=== PATIENT | female | born 1990 | race Caucasian/White ===

== ENCOUNTER → 2019-08-10 | Outpatient (CLI) | payer OTHER ==
[~2019-08-10] MED LIST: ACYC400 PO; ALBU90OI; ALBU90OI INH; AMOX500 PO; BUPR100; CEPH500 PO; CLON.5 PO; HYDACE5 PO; IBUP600 PO; IBUP800 PO; MECL25 PO; MEDR150I IM; METO10 PO; MULVITMINE PO; NAPR500 PO; OXYACE5T PO; PARO20 PO; PREVPAC PO; RANI150 PO; RXSULTRIDS PO; SULTRIDS PO; Sprintec1 EACH; TRAM50 PO; Ultram50 MG PO
[2019-08-12 15:07] LABS: HPV 16 Negative (Negative); HPV 18 Negative (Negative); HPV OTHER HR TYPES Negative (Negative)
== END ==
LOC: LAB SHORT 17:55 → LAB 17:55
PROVIDERS: Registered Nurse Community Health
DX: Z01.419 Encounter for gynecological examination (general) (routine) without abnormal findings (principal); Z12.4 Encounter for screening for malignant neoplasm of cervix
CPT/HCPCS: 87624; G0123

== ENCOUNTER → 2019-11-17 | Outpatient (CLI) | payer OTHER ==
[2019-11-19 03:07] LABS: CHLAMYDIA TRACHOMATIS, NAA Negative (Negative); NEISSERIA GONORRHOEAE, NAA Negative (Negative)
== END ==
LOC: LAB 12:53 → LAB SHORT 12:53
PROVIDERS: Registered Nurse Community Health
DX: N89.8 Other specified noninflammatory disorders of vagina (principal); Z20.2 Contact with and (suspected) exposure to infections with a predominantly sexual mode of transmission
CPT/HCPCS: 87070; 87205; 87491; 87591

== ENCOUNTER → 2020-06-06 | Outpatient (CLI) | payer OTHER ==
[2020-06-08 14:11] LABS: CHLAMYDIA BY NAA Negative (Negative); GONOCOCCUS BY NAA Negative (Negative); TRICH VAG BY NAA Negative (Negative)
== END ==
LOC: LAB SHORT 15:44 → LAB SRC 15:44 → LAB UCHC 15:44
PROVIDERS: Registered Nurse Community Health
DX: L29.3 Anogenital pruritus, unspecified (principal); Z20.2 Contact with and (suspected) exposure to infections with a predominantly sexual mode of transmission
CPT/HCPCS: 87070; 87205; 87491; 87591; 87661

== ENCOUNTER 2021-05-22 08:47 | Day surgery (SDC) | payer OTHER ==
[~2021-05-22] VITALS: Ht 162.6 cm; Wt 66.6 kg
[2021-05-22] MEDS ORDERED: AMOXICILLI125 MG/5 M PO (09:14)
== END 2021-05-22 10:37 | disposition home or self-care (01) ==
LOC: ORSCSDS 08:47
PROVIDERS: Student in an Organized Health Care Education/Training Program
PROC: 0DB68ZX Excision of Stomach, Via Natural or Artificial Opening Endoscopic, Diagnostic (ICD-10-PCS; principal; 2021-05-22 10:00)
PROC: 0DB58ZX Excision of Esophagus, Via Natural or Artificial Opening Endoscopic, Diagnostic (ICD-10-PCS; principal; 2021-05-22 10:00)
PROC: 0DB98ZX Excision of Duodenum, Via Natural or Artificial Opening Endoscopic, Diagnostic (ICD-10-PCS; principal; 2021-05-22 10:00)
DX: K21.9 Gastro-esophageal reflux disease without esophagitis (principal); K29.50 Unspecified chronic gastritis without bleeding; R13.10 Dysphagia, unspecified; R10.9 Unspecified abdominal pain; R19.4 Change in bowel habit; K62.5 Hemorrhage of anus and rectum; F31.9 Bipolar disorder, unspecified; Z87.891 Personal history of nicotine dependence; Z79.899 Other long term (current) drug therapy
CPT/HCPCS: 88305; 88342; J2250; J2704; J7120

== ENCOUNTER 2021-08-22 17:44 | Emergency (ER) | payer OTHER ==
[~2021-08-22] VITALS: Ht 162.6 cm; Wt 63.5 kg
[~2021-08-22 17:44] MED LIST changes: -FERSU300 PO; -PROM12.5S PR; -SUCR1 PO
[2021-08-22 18:46] LABS: BASOPHILS ABSOLUTE AUTO 0.01 K/mm3 (0.00-0.23); BASOPHILS PERCENT AUTO 0 % (0-2); EOSINOPHILS PERCENT AUTO 0 % (0-6); Hematocrit 26.1 % (33.0-51.0); IMMATURE GRAN ABSOLUTE AUTO 0.03 K/mm3 (0.00-0.10); IMMATURE GRAN PERCENT AUTO 0 % (0-1); LYMPHOCYTES ABSOLUTE AUTO 0.57 K/mm3 (0.84-5.20); LYMPHOCYTES PERCENT AUTO 6 % (21-46); MONOCYTES ABSOLUTE AUTO 0.17 K/mm3 (0.16-1.47); MONOCYTES PERCENT AUTO 2 % (4-13); Mean Corpuscular HGB 17.2 pg (26.0-34.0); Mean Corpuscular HGB Conc 26.8 g/dL (31.5-36.5); Mean Corpuscular Volume 64 fL (80-100); NEUTROPHILS ABSOLUTE AUTO 8.26 K/mm3 (1.96-9.15); NEUTROPHILS PERCENT AUTO 91 % (41-73); Platelet Count 425 K/mm3 (150-400); RDW Coefficient Variation 17.7 % (11.7-14.2); RDW Standard Deviation 40.1 fL (35.1-46.3); Red Blood Cell Count 4.08 M/mm3 (3.80-5.20); White Blood Cell Count 9.04 K/mm3 (4.00-11.30)
[2021-08-22 19:04] LABS: Alanine Aminotransfer (ALT/SGP 20 U/L (12-78); Albumin, Blood 4.6 g/dL (3.4-5.0); Albumin/Globulin Ratio 1.4 (0.8-1.8); Alk Phos 53 U/L (50-136); Anion Gap 4 mmol/L (6-16); Aspartate Aminotrans (AST/SGOT 16 U/L (12-37); Bilirubin, Total 0.4 mg/dL (0.1-1.0); Blood Urea Nitrogen 13 mg/dL (8-24); Bun/Creatinine Ratio 18.6 (12.0-20.0); CO2, Blood 27 mmol/L (21-32); Calcium, Blood 9.6 mg/dL (8.5-10.1); Chloride, Blood 111 mmol/L (98-108); Globulin, Blood 3.4 g/dL (2.2-4.0); Glomerular Filtration Rate >60 (60-); Glucose, Blood 109 mg/dL (70-99); Potassium, Blood 3.9 mmol/L (3.5-5.5); Sodium, Blood 142 mmol/L (136-145)
[2021-08-22 19:05] LABS: International Normalized Ratio 1.04; Prothrombin Time Results 10.9 Sec (9.7-11.5)
[2021-08-22 20:59] LABS: Percent Saturation 2.1 % (15.0-50.0)
[2021-08-22] MEDS ORDERED: FERSU300 PO (21:06)
[2021-08-22] MEDS ORDERED: SUCR1 PO (21:18)
[2021-08-22] MEDS ORDERED: PROM12.5S PR (21:18)
== END 2021-08-22 21:29 | disposition home or self-care (01) ==
LOC: ER 17:44
PROVIDERS: Physician Assistant; Student in an Organized Health Care Education/Training Program
DX: K92.1 Melena (principal); D50.9 Iron deficiency anemia, unspecified; R10.13 Epigastric pain; R53.83 Other fatigue; R11.2 Nausea with vomiting, unspecified; J45.909 Unspecified asthma, uncomplicated; Z88.6 Allergy status to analgesic agent; Z79.899 Other long term (current) drug therapy
CPT/HCPCS: 36430; 80053; 83540; 83550; 84703; 85025; 85610; 85730; 86850; 86900; 86901; 86923; 96374; 99283-25; A9270; C9113; J7030; P9016

== ENCOUNTER → 2021-08-22 | Outpatient (CLI) | payer OTHER ==
[~2021-08-22] MED LIST changes: +AMOXICILLI125 MG/5 M PO; +FERSU300 PO; +PROM12.5S PR; +SUCR1 PO
[2021-08-22 11:46] LABS: BASOPHILS ABSOLUTE AUTO 0.03 K/mm3 (0.00-0.23); BASOPHILS PERCENT AUTO 0 % (0-2); EOSINOPHILS PERCENT AUTO 0 % (0-6); Hematocrit 25.6 % (33.0-51.0); Hemoglobin 6.9 g/dL (11.5-16.0); IMMATURE GRAN ABSOLUTE AUTO 0.04 K/mm3 (0.00-0.10); IMMATURE GRAN PERCENT AUTO 0 % (0-1); LYMPHOCYTES ABSOLUTE AUTO 0.39 K/mm3 (0.84-5.20); LYMPHOCYTES PERCENT AUTO 4 % (21-46); MONOCYTES ABSOLUTE AUTO 0.34 K/mm3 (0.16-1.47); MONOCYTES PERCENT AUTO 3 % (4-13); Mean Corpuscular Volume 63 fL (80-100); Mean Platelet Volume 9.7 fL (9.1-12.4); NEUTROPHILS ABSOLUTE AUTO 9.45 K/mm3 (1.96-9.15); NEUTROPHILS PERCENT AUTO 92 % (41-73); Platelet Count 411 K/mm3 (150-400); Red Blood Cell Count 4.05 M/mm3 (3.80-5.20); White Blood Cell Count 10.25 K/mm3 (4.00-11.30)
== END | disposition home or self-care (01) ==
LOC: LAB 11:43 → LAB SHORT 11:43
PROVIDERS: Physician Assistant
DX: R11.2 Nausea with vomiting, unspecified (principal)
CPT/HCPCS: 85025

== ENCOUNTER 2021-10-22 11:35 | Day surgery (SDC) | payer OTHER ==
[~2021-10-22] VITALS: Ht 162.6 cm; Wt 61.3 kg
[~2021-10-22 11:35] MED LIST changes: +FERSU300 PO; +PROM12.5S PR; +SUCR1 PO
[2021-10-22] MEDS ORDERED: PROP10 (11:47)
[2021-10-22] MEDS ORDERED: SERT100 (11:48)
== END 2021-10-22 13:20 | disposition home or self-care (01) ==
LOC: ORSCSDS 11:35
PROVIDERS: Student in an Organized Health Care Education/Training Program
PROC: 0DBB8ZX Excision of Ileum, Via Natural or Artificial Opening Endoscopic, Diagnostic (ICD-10-PCS; principal; 2021-10-22 12:45)
DX: R11.2 Nausea with vomiting, unspecified (principal); K62.5 Hemorrhage of anus and rectum; R10.9 Unspecified abdominal pain; R19.7 Diarrhea, unspecified; K52.9 Noninfective gastroenteritis and colitis, unspecified; K64.4 Residual hemorrhoidal skin tags; F31.9 Bipolar disorder, unspecified; K21.9 Gastro-esophageal reflux disease without esophagitis; Z87.891 Personal history of nicotine dependence; Z79.899 Other long term (current) drug therapy
CPT/HCPCS: 88305; J2250; J2405; J2704; J7120

== ENCOUNTER → 2021-10-27 | Outpatient (CLI) | payer OTHER ==
[~2021-10-27] MED LIST changes: +PROP10; +SERT100
[2021-10-27 13:03] LABS: BASOPHILS ABSOLUTE AUTO 0.03 K/mm3 (0.00-0.23); BASOPHILS PERCENT AUTO 1 % (0-2); EOSINOPHILS ABSOLUTE AUTO 0.14 K/mm3 (0.00-0.68); EOSINOPHILS PERCENT AUTO 3 % (0-6); Hematocrit 34.3 % (33.0-51.0); Hemoglobin 10.4 g/dL (11.5-16.0); IMMATURE GRAN ABSOLUTE AUTO 0.02 K/mm3 (0.00-0.10); IMMATURE GRAN PERCENT AUTO 0 % (0-1); LYMPHOCYTES ABSOLUTE AUTO 1.79 K/mm3 (0.84-5.20); LYMPHOCYTES PERCENT AUTO 36 % (21-46); MONOCYTES ABSOLUTE AUTO 0.32 K/mm3 (0.16-1.47); MONOCYTES PERCENT AUTO 7 % (4-13); Mean Corpuscular HGB 22.6 pg (26.0-34.0); Mean Corpuscular HGB Conc 30.3 g/dL (31.5-36.5); Mean Corpuscular Volume 74 fL (80-100); Mean Platelet Volume 9.4 fL (9.1-12.4); NEUTROPHILS ABSOLUTE AUTO 2.64 K/mm3 (1.96-9.15); NEUTROPHILS PERCENT AUTO 54 % (41-73); Platelet Count 270 K/mm3 (150-400); RDW Coefficient Variation 22.4 % (11.7-14.2); RDW Standard Deviation 58.5 fL (35.1-46.3); Red Blood Cell Count 4.61 M/mm3 (3.80-5.20); White Blood Cell Count 4.94 K/mm3 (4.00-11.30)
[2021-10-27 13:22] LABS: Alanine Aminotransfer (ALT/SGP 23 U/L (12-78); Albumin, Blood 4.4 g/dL (3.4-5.0); Albumin/Globulin Ratio 1.7 (0.8-1.8); Alk Phos 56 U/L (40-126); Anion Gap 11 mmol/L (6-16); Aspartate Aminotrans (AST/SGOT 17 U/L (12-37); Bilirubin, Total 0.4 mg/dL (0.1-1.0); Blood Urea Nitrogen 9 mg/dL (8-24); Bun/Creatinine Ratio 13.6 (12.0-20.0); CO2, Blood 26 mmol/L (21-32); Calcium, Blood 9.3 mg/dL (8.5-10.1); Chloride, Blood 107 mmol/L (98-108); Creatinine, Blood 0.66 mg/dL (0.40-1.00); Globulin, Blood 2.6 g/dL (2.2-4.0); Glomerular Filtration Rate >60 (60-); Glucose, Blood 90 mg/dL (70-99); Potassium, Blood 4.2 mmol/L (3.5-5.5); Sodium, Blood 144 mmol/L (136-145)
== END | disposition home or self-care (01) ==
LOC: LAB SHORT 12:59
PROVIDERS: Physician Assistant
DX: R10.9 Unspecified abdominal pain (principal)
CPT/HCPCS: 80053; 83690; 85025

== ENCOUNTER → 2022-01-16 | Outpatient (CLI) | payer OTHER ==
[2022-01-16 19:00] LABS: Hematocrit 36.2 % (33.0-51.0); Hemoglobin 11.2 g/dL (11.5-16.0)
[2022-01-16 22:47] LABS: Free Thyroxine 0.97 ng/dL (0.70-1.60); Thyroid Stimulating Hormone 1.4 uIU/mL (0.360-4.800)
[2022-01-17 08:11] LABS: HIV AB/P24 AG SCREEN Non Reactive (Non Reactive)
[2022-01-18 00:07] LABS: HBSAG SCREEN Negative (Negative); HCV AB <0.1 (0.0-0.9); HEP B CORE AB, TOT Negative (Negative)
[2022-01-18 15:12] LABS: HPV 16 Negative (Negative); HPV 18 Negative (Negative); HPV OTHER HR TYPES Negative (Negative)
[2022-01-19 12:10] LABS: CHLAMYDIA BY NAA Negative (Negative); GONOCOCCUS BY NAA Negative (Negative); TRICH VAG BY NAA Negative (Negative)
== END ==
LOC: LAB SHORT 13:40
PROVIDERS: Registered Nurse Community Health
DX: Z11.3 Encounter for screening for infections with a predominantly sexual mode of transmission (principal); Z12.4 Encounter for screening for malignant neoplasm of cervix; D50.9 Iron deficiency anemia, unspecified; N94.89 Other specified conditions associated with female genital organs and menstrual cycle; R63.4 Abnormal weight loss; Z20.2 Contact with and (suspected) exposure to infections with a predominantly sexual mode of transmission; Z72.51 High risk heterosexual behavior
CPT/HCPCS: 83036; 84439; 84443; 85014; 85018; 86592; 86704; 86708; 86803; 87340; 87389; 87491; 87591; 87661

== ENCOUNTER → 2022-02-27 | Outpatient (CLI) | payer OTHER ==
[2022-02-27 13:08] LABS: BASOPHILS ABSOLUTE AUTO 0.02 K/mm3 (0.00-0.23); BASOPHILS PERCENT AUTO 0 % (0-2); EOSINOPHILS ABSOLUTE AUTO 0.04 K/mm3 (0.00-0.68); EOSINOPHILS PERCENT AUTO 1 % (0-6); Hematocrit 30.6 % (33.0-51.0); Hemoglobin 9.9 g/dL (11.5-16.0); IMMATURE GRAN ABSOLUTE AUTO 0.02 K/mm3 (0.00-0.10); IMMATURE GRAN PERCENT AUTO 0 % (0-1); LYMPHOCYTES ABSOLUTE AUTO 0.84 K/mm3 (0.84-5.20); LYMPHOCYTES PERCENT AUTO 11 % (21-46); MONOCYTES ABSOLUTE AUTO 0.22 K/mm3 (0.16-1.47); MONOCYTES PERCENT AUTO 3 % (4-13); Mean Corpuscular HGB 26.5 pg (26.0-34.0); Mean Corpuscular HGB Conc 32.4 g/dL (31.5-36.5); Mean Corpuscular Volume 82 fL (80-100); Mean Platelet Volume 10.8 fL (9.1-12.4); NEUTROPHILS ABSOLUTE AUTO 6.26 K/mm3 (1.96-9.15); NEUTROPHILS PERCENT AUTO 85 % (41-73); Platelet Count 221 K/mm3 (150-400); RDW Coefficient Variation 15.4 % (11.7-14.2); RDW Standard Deviation 46.3 fL (35.1-46.3); Red Blood Cell Count 3.74 M/mm3 (3.80-5.20)
[2022-02-27 13:23] LABS: Albumin, Blood 3.7 g/dL (3.4-5.0); Albumin/Globulin Ratio 1.5 (0.8-1.8); Bilirubin, Total 0.4 mg/dL (0.1-1.0); Bun/Creatinine Ratio 13.5 (12.0-20.0); Calcium, Blood 8.5 mg/dL (8.5-10.1); Creatinine, Blood 0.59 mg/dL (0.40-1.00); Globulin, Blood 2.4 g/dL (2.2-4.0); Potassium, Blood 3.6 mmol/L (3.5-5.5); Total Protein, Blood 6.1 g/dL (6.4-8.2)
== END | disposition home or self-care (01) ==
LOC: LAB 12:31 → LAB SHORT 12:31
PROVIDERS: Physician Assistant
DX: R10.9 Unspecified abdominal pain (principal)
CPT/HCPCS: 80053; 83690; 85025

== ENCOUNTER 2022-06-13 08:52 | Day surgery (SDC) | payer OTHER ==
[2022-06-10 10:17] LABS: BASOPHILS ABSOLUTE AUTO 0.05 K/mm3 (0.00-0.23); BASOPHILS PERCENT AUTO 1 % (0-2); EOSINOPHILS ABSOLUTE AUTO 0.12 K/mm3 (0.00-0.68); EOSINOPHILS PERCENT AUTO 2 % (0-6); Hematocrit 33.2 % (33.0-51.0); IMMATURE GRAN ABSOLUTE AUTO 0.01 K/mm3 (0.00-0.10); IMMATURE GRAN PERCENT AUTO 0 % (0-1); LYMPHOCYTES ABSOLUTE AUTO 1.65 K/mm3 (0.84-5.20); LYMPHOCYTES PERCENT AUTO 32 % (21-46); MONOCYTES ABSOLUTE AUTO 0.39 K/mm3 (0.16-1.47); MONOCYTES PERCENT AUTO 8 % (4-13); Mean Corpuscular HGB 24.1 pg (26.0-34.0); Mean Corpuscular HGB Conc 30.1 g/dL (31.5-36.5); Mean Corpuscular Volume 80 fL (80-100); Mean Platelet Volume 10.1 fL (9.1-12.4); NEUTROPHILS ABSOLUTE AUTO 2.87 K/mm3 (1.96-9.15); NEUTROPHILS PERCENT AUTO 56 % (41-73); Platelet Count 321 K/mm3 (150-400); RDW Coefficient Variation 14.4 % (11.7-14.2); Red Blood Cell Count 4.15 M/mm3 (3.80-5.20); White Blood Cell Count 5.09 K/mm3 (4.00-11.30)
[2022-06-10 10:43] LABS: Bun/Creatinine Ratio 16.2 (12.0-20.0); Calcium, Blood 9.2 mg/dL (8.5-10.1); Creatinine, Blood 0.68 mg/dL (0.40-1.00); Potassium, Blood 4.4 mmol/L (3.5-5.5)
[~2022-06-13] VITALS: Ht 162.6 cm; Wt 64.3 kg
[~2022-06-13 08:52] MED LIST changes: +ATOMOXETINE HCL80 M1 PO; +PANT20 PO
[2022-06-13] MEDS ORDERED: CLON.5 PO (09:20)
--- NOTE | 2022-06-13 13:29 | NUR ---
PATIENT ARRIVED TO UNIT. TRANSFERRED TO BED WITH SLIDER SHEET AND X4 STAFF MEMBERS, TOLERATED WELL. PATIENT C/O NAUSEA, PLAN TO MEDICATE PER EMAR. X4 LAP SITES W/ WOUND GLUE PRESENT, C/D/I. ELVA PAD IN PLACE, SVNT BLEEDING PRESENT CURRENTLY. PATIENT DROWSY, AWAKES TO STIMULI AND VOICES APPROPRITELY. ORIENTED PATIENT AND FAMILY MEMBER TO ROOM & CALL LIGHT.
--- NOTE | 2022-06-13 15:10 | NUR ---
THIS RN AND SUPPLY CATALOGUER ASSISTED PATIENT TO BEDSIDE COMMODE AFTER PATIENT STATED SHE HAD TO USE THE BATHROOM. PATIENT RUDELY YELLED AT SUPPLY CATALOGUER STATING "DONT MOVE THAT, MY FOOT IS THERE". THIS RN ENFORCED THAT IT IS INAPPROPRIATE FOR HER TO YELL AND TALK TO THE STAFF THAT WAY. PATIENT STATED "YOU DONT NEED TO WORRY ABOUT IT, I'M TALKING TO HER". 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 PATIENT TIGHTENED FISTS AND HIT THEM ON CHAIR AND NO LONGER WOULD SPEAK TO ME. DISCUSSED WITH EBENEZER ENGLAND, DEBONE PROCESSING SUPERVISOR AND SHE HAD A CONVERSATION WITH PATIENT AND ADVISED TO ENTER MAD CONSULT.
[2022-06-13] MEDS ORDERED: Percocet 5-3251 EACH PO (16:10)
[2022-06-13] MEDS ORDERED: ONDA4ODT MM (16:11)
[2022-06-13] MEDS ORDERED: IBUP800 PO (16:11)
--- NOTE | 2022-06-13 16:15 | NUR ---
DISCUSSED DISCHARGE CRITERIA WITH PATIENT AND FAMILY MEMBER PRESENT AT BEDSIDE. PATIENT ACKNOWLEDGED AND VERBALIZED UNDERSTANDING. RETURNED TO SLEEPING. CALL LIGHT IN REACH.
--- NOTE | 2022-06-13 18:39 | NUR ---
SHIFT SUMMARY POD 0 LAP HYSTERECTOMY, X4 LAP SITES W/ DERMABOND, C/D/I. ELVA PAD IN PLACE, VERY MINIMAL VAGINAL BLEEDING. PATIENT REPORTS PAIN TO BE 4/10 BUT DENIES PAIN MEDICATION D/T NAUSEA. PATIENT REPORTING NAUSEA SINCE ARRIVAL TO UNIT, EMESIS X1. PATIENT AMBULATED TO BATHROOM AND VOIDED W/O DIFFICULTY. TOLERATING SIPS OF WATER BUT NO OTHER PO INTAKE AT THIS TIME. PATIENT FEELS THAT SHE WOULD BENEFIT FROM STAYING THE NIGHT HERE, DR GALLEGOS NOTIFIED AND UPDATED OF PATIENTS WISHES, AWAITING TO HERE BACK FROM DR GALLEGOS. WILL REPORT TO ONCOMING RN.
--- NOTE | 2022-06-14 06:27 | NUR ---
SHIFT SUMMARY POD1 LAP HYSTER, A/OX4, VSS, TOLERATING PO WITH LESS NAUSEA AFTER A 1L BOLUS AND ABOUT 500ML ADDITIONAL FLUIDS, LOST IV ACCESS AFTER ACCIDENTLY PULLING IT OUT AND WAS UNABLE TO REGAIN ACCESS, PT WAS AGGREABLE TO NOT GETTING ANOTHER IV AND WAS REPORTING FEELING LIKE SHE COULD TRY DRINKING SOME WATER, THIS WAS DONE WITHOUT VOMITTING. NO ACUTE EVENTS THIS SHIFT, CALL LIGHT IN REACH, WILL CTM AND REPORT TO ONCOMING DAY RN.
--- NOTE | 2022-06-14 09:00 | NUR ---
8776 dr garcia here to see patient. patient is in agreemetn with plan to discharge home. pt reports pain is adequately controlled. pt denies nausea at this time. pt discharged to home at 0900
== END 2022-06-14 12:00 | disposition home or self-care (01) ==
LOC: SURS 08:52 → ORSCMMR 08:52 → ORD 10:30 → SURS 13:23 → ORSCMMR 06-14 12:00
PROVIDERS: Obstetrics & Gynecology
PROC: 8E0W4CZ Robotic Assisted Procedure of Trunk Region, Percutaneous Endoscopic Approach (ICD-10-PCS; principal; 2022-06-13 10:30)
PROC: 0UB74ZZ Excision of Bilateral Fallopian Tubes, Percutaneous Endoscopic Approach (ICD-10-PCS; principal; 2022-06-13 10:30)
PROC: 0UT94ZZ Resection of Uterus, Percutaneous Endoscopic Approach (ICD-10-PCS; principal; 2022-06-13 10:30)
DX: N92.0 Excessive and frequent menstruation with regular cycle (principal); N85.2 Hypertrophy of uterus; N94.6 Dysmenorrhea, unspecified; K66.0 Peritoneal adhesions (postprocedural) (postinfection); N94.89 Other specified conditions associated with female genital organs and menstrual cycle; J45.909 Unspecified asthma, uncomplicated; K21.9 Gastro-esophageal reflux disease without esophagitis; F41.9 Anxiety disorder, unspecified; Z79.899 Other long term (current) drug therapy
CPT/HCPCS: 58571; S2900; 36415; 80048; 84703; 85025; 86850; 86900; 86901; 88307; A9270; J0690; J1100; J1885; J2250; J2405; J2550; J2704; J2765; J2795; J3010; J7030; J7120

== ENCOUNTER 2023-05-07 20:25 | Emergency (ER) | payer OTHER ==
[~2023-05-07] VITALS: Ht 165.1 cm; Wt 63.5 kg
[~2023-05-07 20:25] MED LIST changes: +ONDA4ODT MM; +Percocet 5-3251 EACH PO
[2023-05-07 20:32] VITALS: BP 152/85
[2023-05-07] MEDS ORDERED: CYCL10 PO (21:15)
== END 2023-05-07 21:18 | disposition home or self-care (01) ==
LOC: ER 20:25
DX: S39.012A Strain of muscle, fascia and tendon of lower back, initial encounter (principal); V43.52XA Car driver injured in collision with other type car in traffic accident, initial encounter; Z79.899 Other long term (current) drug therapy; Z88.6 Allergy status to analgesic agent
CPT/HCPCS: 72100; 99284-25

== ENCOUNTER → 2023-12-10 | Outpatient (CLI) | payer OTHER ==
[~2023-12-10] MED LIST changes: +CYCL10 PO
[2023-12-12 08:57] LABS: HEPATITIS C AB CIA INTERP Negative (Negative); HEPATITIS C ANTIBODY CIA INDEX 0.11 IV
[2023-12-12 09:35] LABS: HIV 1,2 COMBO ANTIGEN/ANTIBODY Negative (Negative)
[2023-12-12 17:31] LABS: APTIMA MEDIA TYPE MultiTest Swab; C. TRACHOMATIS BY TMA Negative (Negative); N. GONORRHOEAE BY TMA Negative (Negative); SPECIMEN SOURCE Vaginal; T. VAGINALIS BY TMA Negative (Negative)
[2023-12-12 18:29] LABS: HEPATITIS B SURFACE ANTIGEN Negative (Negative)
== END | disposition home or self-care (01) ==
LOC: LAB SHORT 11:48
PROVIDERS: Registered Nurse Community Health
DX: Z11.3 Encounter for screening for infections with a predominantly sexual mode of transmission (principal); R35.0 Frequency of micturition; Z20.2 Contact with and (suspected) exposure to infections with a predominantly sexual mode of transmission
CPT/HCPCS: 86592; 86803; 87086; 87389

== ENCOUNTER 2024-12-15 01:26 | Observation (INO) | payer OTHER ==
[~2024-12-15] VITALS: Ht 162.6 cm; Wt 62.0 kg
[2024-12-15] MEDS ORDERED: Ondansetron HCl 2 MG / ML 2ML Vial IV ONE (02:00)
[2024-12-15 02:05] LABS: BASOPHILS ABSOLUTE AUTO 0.04 K/mm3 (0.00-0.23); BASOPHILS PERCENT AUTO 0 % (0-2); EOSINOPHILS ABSOLUTE AUTO 0.05 K/mm3 (0.00-0.68); EOSINOPHILS PERCENT AUTO 0 % (0-6); Hematocrit 39.9 % (33.0-51.0); Hemoglobin 13.3 g/dL (11.5-16.0); IMMATURE GRAN ABSOLUTE AUTO 0.09 K/mm3 (0.00-0.10); IMMATURE GRAN PERCENT AUTO 1 % (0-1); LYMPHOCYTES ABSOLUTE AUTO 0.79 K/mm3 (0.84-5.20); LYMPHOCYTES PERCENT AUTO 5 % (21-46); MONOCYTES ABSOLUTE AUTO 1.34 K/mm3 (0.16-1.47); MONOCYTES PERCENT AUTO 9 % (4-13); Mean Corpuscular HGB 28.7 pg (26.0-34.0); Mean Corpuscular HGB Conc 33.3 g/dL (31.5-36.5); Mean Corpuscular Volume 86 fL (80-100); Mean Platelet Volume 9.1 fL (9.1-12.4); NEUTROPHILS ABSOLUTE AUTO 12.47 K/mm3 (1.96-9.15); NEUTROPHILS PERCENT AUTO 84 % (41-73); Platelet Count 265 K/mm3 (150-400); RDW Coefficient Variation 12.4 % (11.7-14.2); RDW Standard Deviation 39.5 fL (35.1-46.3); Red Blood Cell Count 4.64 M/mm3 (3.80-5.20); White Blood Cell Count 14.78 K/mm3 (4.00-11.30)
[2024-12-15 02:16] LABS: Albumin, Blood 3.9 g/dL (3.4-5.0); Albumin/Globulin Ratio 1.1 (0.8-1.8); Bilirubin, Total 0.9 mg/dL (0.1-1.0); Bun/Creatinine Ratio 15.7 (12.0-20.0); Calcium, Blood 8.8 mg/dL (8.5-10.1); Creatinine, Blood 0.77 mg/dL (0.40-1.00); Globulin, Blood 3.5 g/dL (2.2-4.0); Potassium, Blood 3.9 mmol/L (3.5-5.5); Total Protein, Blood 7.4 g/dL (6.4-8.2)
[2024-12-15] MEDS ORDERED: Ketorolac Tromethamine 30mg Vial IV ONE ×2 (02:25→07:05)
[2024-12-15] MEDS ORDERED: NS 1,000 ML IV SCH ×3 (02:25→07:40)
[2024-12-15 02:55] LABS: Source, Urine Clean Catch
[2024-12-15 02:59] LABS: Bilirubin, Urine Neg (Neg); Blood, Urine 3+ (Neg); Glucose Qualitative, Urine Neg (Neg); Ketones, Urine Neg (Neg); Leukocyte Esterase, Urine 3+ (Neg); Nitrite, Urine Pos (Neg); Protein, Urine 3+ (Neg); Urobilinogen, Urine 1+ (Normal); pH, Urine 6.5 (5.0-8.0)
[2024-12-15 03:06] LABS: Appearance, Urine Hazy (Clear); Color, Urine Pale Yellow (P-Yellow)
[2024-12-15 03:08] LABS: Bacteria Many /hpf; Squamous Epithelial Cells Mod /hpf (Few); White Blood Cells, Urine TNTC /hpf (0-5)
[2024-12-15] MEDS ORDERED: CefTRIAXone Sodium 1,000 MG in NS 50 ML IV ONE (03:35)
[2024-12-15] MEDS ORDERED: CEFP200 PO (05:30)
[2024-12-15] MEDS ORDERED: FLU VACC TS2024-25(6MOS UP)/PF 45 MCG/0.5 ML SYRINGE IM SCH (07:40)
[2024-12-15] MEDS ORDERED: Lactobacil 2-S.Thermo-Bifido 1 1 Cap PO SCH (09:00)
[2024-12-15 13:20] VITALS: BP 133/92
[2024-12-15] MEDS ORDERED: HYDROcodone 5-APAP 325 TAB PO PRN (13:30)
[2024-12-15] MEDS ORDERED: Acetaminophen 325 MG TABLET PO PRN (13:35)
--- NOTE | 2024-12-15 13:58 | NUR ---
HOME MEDCIATIONS PT STATED THAT SHE DOESN'T TAKE ANY ROUTINE HOME MEDICATIONS. SHE DOES USE [employer] FOR HER PHARAMCY. CARE ONGOING.
--- NOTE | 2024-12-15 14:15 | NUR ---
ER ADMIT TO MEDICAL FLOOR/ PT OBSERVED AMBULATING TO BATHROOM INDEPENDENTLY. PT CALLS APPROPRIATELY. PAIN 5/10 RLQ RADIATING TO BACK. MD NOTIFIED, PLEASE SEE UPDATED ORDERS. IV FLUIDS STARTED. PT RESTING WITH EYES CLOSED.
[2024-12-15 18:10] VITALS: BP 134/110
[2024-12-15 19:42] VITALS: BP 129/84
[2024-12-15] MEDS ORDERED: Famotidine 20 MG Tab PO SCH (21:00)
[2024-12-15] MEDS ORDERED: Docusate Sodium 100 MG Cap PO SCH (21:00)
[2024-12-16 04:38] VITALS: BP 128/71
[2024-12-16 06:57] VITALS: BP 128/79
--- NOTE | 2024-12-16 07:22 | NUR ---
SHIFT SUMMARY PT UP ADLIB IN ROOM AFTER THIS RN OBSERVED SHE HAD AN EVEN, STEADY GAITE. 1943 PT EDUCATED ON SCD S AND INFORMED THERE IS AN ORDER TO APPLY THEM. PT REFUSED. 2043 PT TOOK SHOWER, STATED SHE FEELS FUCH BETTER. 2054, PT S BOYFRIEND, SOLOMON, AT BEDSIDE. PT S BOYFRIEND STAYED IN ROOM FOR DURATION OF SHIFT.
[2024-12-16] MEDS ORDERED: CefTRIAXone Sodium 1,000 MG in NS 100 ML IV SCH (09:00)
[2024-12-16] MEDS ORDERED: CIPR500 PO (14:06)
[2024-12-16] MEDS ORDERED: Norco 5-325 Ta1 EACH PO (14:06)
[2024-12-16] MEDS ORDERED: VISBIOME 112.51 EACH PO (14:07)
== END 2024-12-16 14:34 | disposition home or self-care (01) ==
LOC: ER 01:26 → ERHOLD 01:27 → MEDS 13:17
PROVIDERS: Emergency Medicine; ADMIT Internal Medicine
DX: A41.89 Other specified sepsis (principal); N10 Acute pyelonephritis; R00.0 Tachycardia, unspecified; E87.1 Hypo-osmolality and hyponatremia; J45.909 Unspecified asthma, uncomplicated; E86.0 Dehydration; F60.9 Personality disorder, unspecified; Z88.8 Allergy status to other drugs, medicaments and biological substances; Z79.899 Other long term (current) drug therapy
CPT/HCPCS: 36415; 74177; 80053; 81001; 83605; 83690; 84443; 85025; 87040; 87077; 87086; 87186; 96365-59; 96375; 96376; 99285-25; A9270; G0378; J0696; J1885; J2405; J7030; Q9967

== ENCOUNTER 2025-04-16 21:50 | Emergency (ER) | payer OTHER ==
[~2025-04-16] VITALS: Ht 162.6 cm; Wt 68.0 kg
[~2025-04-16 21:50] MED LIST changes: +CEFP200 PO; +CIPR500 PO; +Norco 5-325 Ta1 EACH PO; +VISBIOME 112.51 EACH PO
[2025-04-16 23:18] LABS: Source, Urine Voided
[2025-04-16 23:33] LABS: Bilirubin, Urine Neg (Neg); Color, Urine Yellow (P-Yellow); Glucose Qualitative, Urine Neg (Neg); Ketones, Urine Neg (Neg); Leukocyte Esterase, Urine 3+ (Neg); Protein, Urine 3+ (Neg); Specific Gravity, Urine 1.015 (1.003-1.022); Urobilinogen, Urine NORM (Normal)
[2025-04-16 23:39] LABS: Red Blood Cells, Urine 0-2 /hpf (0-2); White Blood Cells, Urine TNTC /hpf (0-5)
[2025-04-16 23:41] LABS: BASOPHILS ABSOLUTE AUTO 0.03 K/mm3 (0.00-0.23); BASOPHILS PERCENT AUTO 0 % (0-2); EOSINOPHILS ABSOLUTE AUTO 0.00 K/mm3 (0.00-0.68); EOSINOPHILS PERCENT AUTO 0 % (0-6); Hematocrit 41.0 % (33.0-51.0); Hemoglobin 13.8 g/dL (11.5-16.0); IMMATURE GRAN ABSOLUTE AUTO 0.12 K/mm3 (0.00-0.10); IMMATURE GRAN PERCENT AUTO 1 % (0-1); LYMPHOCYTES ABSOLUTE AUTO 1.02 K/mm3 (0.84-5.20); LYMPHOCYTES PERCENT AUTO 8 % (21-46); MONOCYTES ABSOLUTE AUTO 1.47 K/mm3 (0.16-1.47); MONOCYTES PERCENT AUTO 11 % (4-13); Mean Corpuscular HGB Conc 33.7 g/dL (31.5-36.5); Mean Corpuscular Volume 84 fL (80-100); NEUTROPHILS ABSOLUTE AUTO 10.95 K/mm3 (1.96-9.15); NEUTROPHILS PERCENT AUTO 81 % (41-73); NRBC ABSOLUTE 0.00 K/mm3 (0.00-0.02); NRBC Auto 0.0 /100 WBC (0.0-0.2); Platelet Count 212 K/mm3 (150-400); RDW Coefficient Variation 12.1 % (11.7-14.2); RDW Standard Deviation 36.9 fL (35.1-46.3)
[2025-04-17 00:02] LABS: Alanine Aminotransfer (ALT/SGP 80.0 U/L (12-78); Albumin, Blood 3.2 g/dL (3.4-5.0); Albumin/Globulin Ratio 0.8 (0.8-1.8); Anion Gap 8.0 mmol/L (3-11); Aspartate Aminotrans (AST/SGOT 82.0 U/L (12-37); Bilirubin, Total 0.4 mg/dL (0.1-1.0); Blood Urea Nitrogen 8.0 mg/dL (8-24); CO2, Blood 25.0 mmol/L (21-32); Calcium, Blood 8.6 mg/dL (8.5-10.1); Chloride, Blood 101.0 mmol/L (98-108); Creatinine, Blood 0.78 mg/dL (0.40-1.00); Globulin, Blood 4.1 g/dL (2.2-4.0); Glucose, Blood 136.0 mg/dL (70-99); Potassium, Blood 3.7 mmol/L (3.5-5.5); Sodium, Blood 130.0 mmol/L (136-145); Total Protein, Blood 7.3 g/dL (6.4-8.2)
[2025-04-17] MEDS ORDERED: Ondansetron HCl 2 MG / ML 2ML Vial IV ONE ×2 (00:40→01:50)
[2025-04-17] MEDS ORDERED: CEPH500 PO ×2 (01:49→12:41)
[2025-04-17] MEDS ORDERED: METO5A PO ×2 (01:49→12:41)
[2025-04-17] MEDS ORDERED: CefTRIAXone Sodium 1,000 MG in NS 100 ML IV ONE (01:50)
[2025-04-17] MEDS ORDERED: Metoclopramide HCl 5MG / ML 2ML Vial IV ONE (01:50)
[2025-04-17] MEDS ORDERED: RX Prepack 2 Tabs Ondansetron ODT 4MG UD ONE (01:50)
[2025-04-17 03:05] VITALS: BP 121/75
== END 2025-04-17 03:00 | disposition home or self-care (01) ==
LOC: ER 21:50
PROVIDERS: Student in an Organized Health Care Education/Training Program
DX: N30.01 Acute cystitis with hematuria (principal); J45.909 Unspecified asthma, uncomplicated; Z87.891 Personal history of nicotine dependence; Z88.5 Allergy status to narcotic agent
CPT/HCPCS: 80053; 81001; 85025; 87077; 87086; 87186; 96361; 96365; 96375; 99283; A9270; J0696; J2405; J2765; J7120